=== PATIENT | male | born 1975 | race Caucasian/White ===

== ENCOUNTER 2022-11-07 08:44 | Emergency (ER) | payer OTHER, SELFPAY ==
[2022-11-07 08:45] VITALS: BP 171/78; PULSE 78; RESP 18; TEMP 36.6; O2SAT 100; BMI 32.3
--- NOTE | 2022-11-07 08:53 | CT_ITS ---
STUDY: CT ABDOMEN AND PELVIS WITHOUT CONTRAST REASON FOR EXAM: Male, 47 years old. Left lower quadrant pain. History of hypertension. RADIATION DOSAGE (If Supplied By Facility): CTDIvol = ( 16.70 ) mGy, DLP = ( 1055.64 ) mGycm TECHNIQUE: Transaxial images were obtained from the dome of the diaphragm to the symphysis pubis without oral contrast, and without intravenous contrast. Sagittal and coronal images were reconstructed. Individualized dose optimization techniques were used for this CT. COMPARISON: None. FINDINGS: Minimal increased markings at the lung bases suggestive of atelectasis. Mild coronary artery calcification. Normal liver. Normal gallbladder and extrahepatic biliary system. Normal spleen. Normal pancreas. Normal bilateral adrenal glands. Normal right kidney. Left perinephric stranding. Mild degree of left hydronephrosis and left hydroureter due to a 3.4 mm calculus in the proximal portion of the left ureter. There is a small hiatal hernia. Normal small intestine. Normal colon. The appendix is visualized and appears normal. There is scattered atherosclerotic calcification of the abdominal aorta, without a demonstrated aneurysm. Normal inferior vena cava. Normal retroperitoneum. Normal urinary bladder. Mild prostatic calcification. There is a small umbilical hernia containing fat. Normal osseous structures. CT/Abdomen/Pelvis without Cont IMPRESSION: 3.4 mm calculus in the proximal portion of the left ureter causing mild degree of left hydronephrosis and left perinephric stranding. Electronically Signed: Jordan Santos MD at 9:38 EDT ,
--- NOTE | 2022-11-07 08:55 | EDS_ITS ---
HPI HPI - GI History of Present Illness Chief Complaint: Abd Pain Detail of Chief Complaint: Left flank and left lower quadrant pain. Informant: patient and spouse/S.O. Abdominal Pain/Flank Pain Onset: Today and Hours Context: Sudden Onset Timing: Continuous Quality: Stabbing Location: LLQ and Left Flank Current Severity: Moderate Maximum Severity: Moderate Worsened by: Movement Relieved by: Nothing Nausea/Vomiting/Emesis GI Symptom: Positive for Nausea Severity: Mild Diarrhea/Melena/Hematochezia GI Symptom: Negative for Diarrhea, Melena or Hematochezia Associated Symptoms Associated Symptoms: Negative for Dysuria, Frequency, Hematuria or Urgency Narrative Narrative: 47-year-old male from the [facility]. History of prior diverticulitis, high cholesterol and hypertension. Has been feeling fine him and his have been traveling to see family and are currently here locally. 630 this morning had sudden onset of left lower quadrant left flank pain. Has had diverticulitis before but he says never been this severe. Denies any dysuria or hematuria. No fever. No prior history of kidney stone. Nothing particular makes the pain better and slightly worse with movement. No prior abdominal surgeries. Prior similar symptoms: Yes Recent Illness/Hospitalization: No PFSH PFSH Home Medications ondansetron 4 mg disintegrating tablet 4 mg PO Q8H #7 tabs 11/07/22 [Rx Last Taken Unknown] oxycodone-acetaminophen 5 mg-325 mg tablet (Percocet) 1 tab PO Q4H PRN pain 5 days #20 tabs 11/07/22 [Rx Last Taken Unknown] Allergy/AdvReac Type Severity Reaction Status Date / Time No Known Allergies Allergy Verified 11/07/22 08:46 Social History Smoking Status: Never smoker ROS ROS ED ROS Narrative Left flank pain. Mild nausea. Review of Systems ROS Unobtainable: Denies due to encephalopathy Constitutional Constitutional ED: Denies chills or fever(s) ENT ENT ED: Denies ear pain Cardiovascular Cardiovascular: Denies chest pain Respiratory/Chest Respiratory/Chest: Denies cough Gastrointestinal Gastrointestinal: Reports abdominal pain and nausea; Denies constipation, diarrhea, melena or vomiting Musculoskeletal Musculoskeletal: Denies arthralgias Integumentary Denies abscess Neurologic Neurologic: Denies headache(s) Psychiatric Psychiatric: Denies anxiety Endocrine Endocrinology: Denies polydipsia Hematologic/Lymphatic Hematologic/Lymphatic: Denies easy bleeding Allergic/Immunologic Allergic/Immunologic ED: Denies mouth swelling or tongue swelling EXAM Physical Exam Narrative Exam Narrative: 47-year-old male standing up with left flank pain. at bedside sitting in chair. Vital signs are stable. He is afebrile. He does not look septic or toxic. H EENT exam unremarkable. Lungs are clear equal and symmetrical bilaterally. Heart regular rhythm no murmur rate about 80. Abdomen is soft, nontender, nondistended normal bowel sounds without peritoneal signs. Back is nontender no flank or CVA tenderness. Where his pain is not on his abdomen and flank is nonreproducible. There is no rash or signs of trauma. Moving all 4 extremities. Nontender no edema. Normal strength. He is awake and alert. Const Vital Signs: 11/07/22 08:45 Temperature 97.9 F Temperature Source Temporal Pulse Rate 78 Respiratory Rate 18 Blood Pressure 171/78 H Blood Pressure Mean 109 Pulse Ox 100 Oxygen Delivery Method Room Air Positive well nourished and well developed; Negative for cachectic, contractures or unkempt General Appearance ED: well developed and NAD; Negative for unkempt, cachectic, contractures or pallor Nutritional Appearance: Negative for cachectic HEENT Reports moist mucous membranes normocephalic and atraumatic; Negative for trauma Eyes PERRL and EOMs intact bilaterally General Eye ED: Negative for pale conjunctiva or scleral icterus Neck no lymphadenopathy, supple and no JVD General: Negative for tenderness Carotids: Negative for other Lymph Lymphatic: Negative for other Resp normal respiratory effort and clear to auscultation bilaterally Effort and Inspection: Negative for respiratory distress Auscultation: Negative for rales, rhonchi or wheezes Cardio regular rate, regular rhythm, S1 normal heart sound, S2 normal heart sound and no murmurs Rate: Negative for bradycardia or tachycardic Rhythm: Negative for abnormal rhythm GI non-tender, non-distended and no masses Inspection: Negative for abdominal distention Auscultation: normoactive bowel sounds Palpation: soft; Negative for tender or guarding Back/Spine no CVA tenderness General Back: Negative for CVA tenderness Cervical Spine: Negative for cervical spine tenderness Thoracic Spine / Upper Back: Negative for thoracic spinal tenderness Lumbar Spine / Lower Back: Negative for lumbar spinal tenderness Coccyx: Negative for other Extremity full ROM General Extremety ED: Negative for edema, tenderness or other findings General Extremity: Negative for edema or other findings Neuro CN's II-XII intact bilaterally and moves all extremities Sensorium / Orientation: alert, oriented to person, oriented to place and oriented to time; Negative for orientation impaired, confused, lethargic or stuporous Motor Exam: strength 5/5 throughout Psych mental status grossly normal and thought process normal Appearance: Negative for unkempt Attitude: No agitated Mood & Affect: Negative for depressed, anxious or tearful Skin no wounds General Skin Exam: Negative for jaundice or pallor Lesions: no lesions Rashes: no rashes Trauma: Negative for abrasion Nails: Negative for discolored MDM MDM MDM Narrative Medical decision making narrative: 47-year-old male left flank pain with a prior history of diverticulitis. Cli nically I think this may be an acute kidney stone it could be diverticulitis but he is not tender. Versus other etiologies. CAT scan and labs are being obtained. He will be treated with Toradol morphine and Zofran for pain. Repeat exam patient is doing well at 10:15 AM. He is having recurrent pain will be given another dose of morphine. We discussed his test results and the CAT scan showing a proximal left ureteral calculi is consistent with his pain, presentation and exam. He will be discharged home Percocet for pain. Motrin. Urine strainer. Zofran for nausea. Fluids and rest. Return if worse. History & Record Review Discussion w/independent historian: Patient and Significant other Additional record(s) reviewed:: No prior records Lab Data Attestation: I reviewed the patient's lab results. Lab results narrative: CBC shows a white count 11.1. H&H is 16 and 47. Platelets 218. Chemistries show a gap of 6. Normal BUN of 13 creatinine 1.38. Glucose 160. Urinalysis shows positive nitrites, 100 red cells, no white cells and no bacteria. CAT scan shows a 3 mm kidney stone PROXIMALLY in the left ureter. I discussed all test results with patient and . Labs: Laboratory Results - last 24 hr 11/07/22 11/07/22 09:02 09:11 WBC 11.1 H RBC 5.15 Hgb 16.0 Hct 47.0 MCV 91.3 MCH 31.1 MCHC 34.0 RDW Std Deviation 39.5 RDW Coeff of Reema 11.9 Plt Count 218 MPV 11.0 Immature Gran % (Auto) 0.500 Neut % (Auto) 78.6 H Lymph % (Auto) 14.8 L Cuming % (Auto) 5.3 Eos % (Auto) 0.3 Baso % (Auto) 0.5 Absolute Neuts (auto) 8.7 H Absolute Lymphs (auto) 1.63 Nucleated RBC % 0 Sodium 140 Potassium 3.6 Chloride 109 H Carbon Dioxide 25.0 Anion Gap 6 BUN 13 Creatinine 1.38 H Estim Creat Clear Calc 67.59 Est GFR (MDRD) Af Amer 71 Est GFR (MDRD) Non-Af 58 L BUN/Creatinine Ratio 9.4 L Glucose 160 H Calcium 9.2 Urine Color Madeline Urine Clarity Sl. Cloudy Urine pH 5.0 Ur Specific [place] 1.025 Urine Protein 100 H Urine Glucose (UA) Normal Urine Ketones 5 H Urine Occult Blood 250 H Urine Nitrite Positive H Urine Bilirubin 1 H Urine Urobilinogen 1 H Ur Leukocyte Esterase 100 H Urine RBC > 100 SEEN Urine WBC 0 SEEN Ur Squamous Epith Cells 0 SEEN Urine Bacteria 0 SEEN Urine Mucus 0 SEEN Radiography Diagnostic Testing: Clinical Impression(s) from Imaging Studies Abdomen/Pelvis CT 11/07/22 08:53 IMPRESSION: 3.4 mm calculus in the proximal portion of the left ureter causing mild degree of left hydronephrosis and left perinephric stranding. Electronically Signed: Jordan Santos MD at 9:38 EDT , Discharge Plan Triage Chief Complaint: Abd Pain ED Provider: Sukhjinder Rosado Dx/Rx/DC Orders Clinical Impression: Acute left flank pain, Kidney stone on left side Instructions: ED Kidney Stone w/ Colic Prescriptions: New oxycodone-acetaminophen [Percocet] 5-325 mg tablet 1 tab PO Q4H PRN (Reason: pain) 5 Days Qty: 20 0RF ondansetron 4 mg tablet,disintegrating 4 mg PO Q8H Qty: 7 0RF Primary Care Provider: Care Physician,No Primary Referrals: Ashutosh العراقي MD [Med Staff - Active Staff] - 3-5 Days if not improving Care Physician,No Primary [Primary Care Provider] - Activity Restrictions/Additional Instructions: You have a left-sided 3 mm kidney stone that just passed out of the kidney and is still pretty high out. This should pass. Typically they do not get stock unless her 8 mm or larger. Motrin and Tylenol for pain. Percocet for more severe pain if you need to Percocet do not take additional Tylenol because it has Tylenol in it. Plenty of fluids. Strain your urine for the past stone. Return if intractable pain, vomiting or fever or you are feeling worse. Zofran as needed for nausea. Safe travels back to [place]. Disposition Disposition: Home, Self Care
[2022-11-07 09:07] LABS: Bacteria 0 SEEN /hpf (None Seen); Mucous, Urine 0 SEEN /hpf (<or=2+); Squamous Epithelial Cells - UA 0 SEEN /hpf (0-5); White Blood Cells 0 SEEN /hpf (0-5)
[2022-11-07] MEDS: Ketorolac 30 MG/ML Syringe IV (09:08)
[2022-11-07] MEDS: Ondansetron 4 MG/2 ML Vial IV (09:08)
[2022-11-07] MEDS: morphine 8 MG/ML Syringe IV (09:09)
[2022-11-07 09:17] LABS: Absolute Lymphocyte Count 1.63 X10^3/uL (0.83-4.51); Absolute Neutrophil Count 8.7 X10^3/uL (2.0-7.7); Basophil# 0.06 X10^3/uL; Basophil% 0.5 % (0-1); Eosinophil# 0.03 X10^3/uL; Eosinophils% 0.3 % (0-5); Lymphocyte # 1.63 X10^3/ul (0.83-4.51); Lymphocyte % 14.8 % (19-41); Mean Corpuscular Hgb 31.1 pg (27.0-32.0); Mean Corpuscular Volume 91.3 fL (80-94); Monocyte# 0.59 X10^3/uL; Monocyte% 5.3 % (0-10); NRBC Flagged by Analyzer 0 % (0-5); Neutrophil # 8.68 X10^3/uL (2.7-7.7); Neutrophil % 78.6 % (47-70); Platelet Count 218 K/mm3 (150-450); RBC Distribution Width CV 11.9 % (11.6-14.6); RBC Distribution Width SD 39.5 fl (35.1-43.9); Red Blood Count 5.15 M/mm3 (4.6-6.2); White Blood Count 11.1 K/mm3 (4.4-11.0)
[2022-11-07 09:21] LABS: Color, Urine Amber (Yellow); Glucose, Dipstick Normal (Normal); Ketone-Dipstick 5 mg/dl (Negative); Leukocyte Esterase-Dipstick 100 /ul (Negative); Nitrite-Dipstick Positive (Negative); Occult Blood-Urine 250 /ul (Negative); Protein-Dipstick 100 mg/dl (Negative); Specific Gravity, Urine 1.025 (1.002-1.030); Urine Clarity Sl. Cloudy (Clear); Urine Urobilinogen 1 mg/dl (Normal)
[2022-11-07 09:26] LABS: Urine Bilirubin Dipstick 1 mg/dL (Negative)
[2022-11-07 09:41] LABS: Red Blood Cells-Urine > 100 SEEN /hpf (0-5)
[2022-11-07 09:45] LABS: Anion Gap 6 (5-15); BUN 13 mg/dL (7-18); BUN/Creat Ratio 9.4 RATIO (10-20); Calcium,Total 9.2 mg/dL (8.5-10.1); Chloride 109 mmol/L (98-107); Creatinine, Serum 1.38 mg/dL (0.70-1.30); EST Glomerular Filtration Rate 58 mL/min (>60); Est Glom Filt Rate - Afr Amer 71 mL/min (>60); Estimated Creatinine Clearance 67.59 ml/min; Glucose 160 mg/dL (74-106); Potassium 3.6 mmol/L (3.5-5.1); Sodium Level 140 mmol/L (136-145)
[2022-11-07 10:29] VITALS: BP 138/78; PULSE 72; RESP 16; TEMP 36.6; O2SAT 100
[2022-11-07] MEDS: morphine 8 MG/ML Syringe 6 MG IV (10:31)
== END 2022-11-07 10:37 | disposition home or self-care (01) ==
PROVIDERS: Emergency Provider Emergency Medicine; Visit Provider Emergency Medicine
DX: R10.32 Left lower quadrant pain (principal); N13.2 Hydronephrosis with renal and ureteral calculous obstruction
CPT/HCPCS: 74176; 80048; 81001; 85025; 96374; 96375; 96376; 99283; J2405